=== PATIENT | male | born 2005 | race Two or more races ===

== ENCOUNTER 2024-08-22 00:45 | Emergency (ER) | payer OTHER ==
[~2024-08-22] VITALS: Ht 172.7 cm; Wt 116.2 kg
[2024-08-22] MEDS: HYDROcodone-ACET 10/325MG TAB PO ONE (01:23)
[2024-08-22] MEDS: ONDANSETRON ODT 4 MG TAB PO ONE (01:23)
[2024-08-22 01:25] VITALS: BP 153/103; PULSE 107; RESP 18; TEMP 98.9; O2SAT 97
[2024-08-22] MEDS ORDERED: HYDR-4902 PO (02:55)
[2024-08-22] MEDS ORDERED: ZOFR4T PO (02:55)
[2024-08-22] MEDS ORDERED: IBUP-1455 PO (02:55)
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
== END 2024-08-22 03:30 | disposition home or self-care (01) ==
LOC: ER 00:45 → EDBD 00:45 → ER 03:30
DX: S06.0XAA Concussion with loss of consciousness status unknown, initial encounter (principal); I10 Essential (primary) hypertension; W22.8XXA Striking against or struck by other objects, initial encounter; Y93.89 Activity, other specified; Y92.89 Other specified places as the place of occurrence of the external cause; Y99.8 Other external cause status
CPT/HCPCS: 70450; 99284; Q0162

== ENCOUNTER 2024-08-22 17:44 | Emergency (ER) | payer OTHER ==
[~2024-08-22] VITALS: Ht 167.6 cm; Wt 118.1 kg
[~2024-08-22 17:44] MED LIST: HYDR-4902 PO; IBUP-1455 PO; ZOFR4T PO
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
[2024-08-22 19:28] VITALS: BP 143/73; PULSE 91; RESP 16; TEMP 98.6; O2SAT 98
[2024-08-22] MEDS: HYDROcodone-ACET 10/325MG TAB PO ONE (19:53)
== END 2024-08-22 20:06 | disposition home or self-care (01) ==
LOC: EDBD 17:44 → ER 17:44 → EDUNIT# 17:44 → ER 20:06
DX: R51.9 Headache, unspecified (principal)